=== PATIENT | male | born 1940 | race Caucasian/White ===

== ENCOUNTER 2020-03-14 16:14 | Emergency (ER) | payer MEDICARE, OTHER ==
[~2020-03-14 16:14] MED LIST: ASCO500C15 PO; ATOR20TA PO; DOCU-28 PO; ENAL2.5T69 PO; FURO40TA4 PO; HYDR-4383 PO; PANT40TA54 PO
[2020-03-14 16:23] VITALS: BP 126/84
== END 2020-03-14 17:38 | disposition home or self-care (01) ==
LOC: ER 16:15
DX: S83.8X1A Sprain of other specified parts of right knee, initial encounter (principal); I25.10 Atherosclerotic heart disease of native coronary artery without angina pectoris; E78.00 Pure hypercholesterolemia, unspecified; I10 Essential (primary) hypertension; I25.2 Old myocardial infarction; Z87.442 Personal history of urinary calculi; Z95.1 Presence of aortocoronary bypass graft; Z98.890 Other specified postprocedural states; Z79.899 Other long term (current) drug therapy; X50.1XXA Overexertion from prolonged static or awkward postures, initial encounter; Y93.89 Activity, other specified; Y92.89 Other specified places as the place of occurrence of the external cause; Y99.8 Other external cause status
CPT/HCPCS: 29505; 73564; 73610; 99284